=== PATIENT | female | born 1960 | race American Indian/Alaskan Native ===

== ENCOUNTER 2021-05-06 14:56 | Outpatient (CLI) | payer MEDICAID ==
--- NOTE | 2021-05-06 16:18 | XRay Report ---
LEFT KNEE 2 VIEWS INDICATION: PAIN IN LEFT. COMPARISON: None. IMPRESSION: Severe osteoarthritic changes are identified in the medial compartment with near complet e loss of joint space. Moderate degenerative changes are identified in the patellofemoral space. Mild degenerative changes in the lateral compartment. A 6 mm calcific density is identified in the supra patellar bursa consistent with a calcified intra-articular foreign body. No acute osseous abnormality or bone lesion is identified. Signer Name: Jonatahn Nguyen Jr, MD Signed: 05/06/2021 4:13 PM Workstation Name: [id number]
== END 2021-05-06 14:57 | disposition home or self-care (01) ==
LOC: XRAY 14:56
PROVIDERS: ATTEND Orthopaedic Surgery
DX: M17.12 Unilateral primary osteoarthritis, left knee (principal)

== ENCOUNTER 2021-06-05 08:42 | Inpatient (IN) | payer OTHER, MEDICAID ==
[2021-05-29 09:49] LABS: Hematocrit 37.9 % (30.3-42.9); Hemoglobin 12.1 gm/dl (10.1-14.3); Mean Corpuscular HGB Conc 32 % (30-34); Mean Corpuscular Volume 83 fl (79-97); Platelet Count 210 K/mm3 (140-440); Red Blood Count 4.58 M/mm3 (3.65-5.03); Red Cell Distribution Width 14.1 % (13.2-15.2)
[2021-05-29 10:29] LABS: BUN/Creatinine Ratio 20; Blood Urea Nitrogen 20 mg/dL (7-17); Calcium 9.3 mg/dL (8.4-10.2); Hemolysis Index 1
--- NOTE | 2021-05-29 10:59 | Anesthesia Consultation ---
Anesthesia Consult and Med Hx Date of service: 06/05/21 - Airway Anesthetic Teeth Evaluation: Good ROM Head & Neck: Adequate Mental/Hyoid Distance: Adequate Mallampati Class: Class I Intubation Access Assessment: Good - Pulmonary Exam CTA: Yes - Cardiac Exam Cardiac Exam: RRR - Pre-Operative Health Status ASA Pre-Surgery Classification: ASA3 Proposed Anesthetic Plan: General - Pre-Anesthesia Comment Pre-Anesthesia Comments: Discussed GA vs SAB; patient requests GA - Pulmonary Hx Smoking: No Hx Asthma: Yes (rare inhaler use; last use 1 yr ago) Hx Respiratory Symptoms: No Hx Sleep Apnea: No (EVERARDO PRE SCREEN HIGH RISK) - Cardiovascular System Hx Hypertension: Yes Hx Heart Attack/AMI: No Hx Percutaneous Transluminal Coronary Angioplasty (PTCA): No Hx Cardia Arrhythmia: No - Central Nervous System CVA: No Hx Psychiatric Problems: Yes (bipolar disorder) - Endocrine Hx Renal Disease: No Hx Liver Disease: No Hx Non-Insulin Dependent Diabetes: Yes Hx Thyroid Disease: No - Hematic Hx Anemia: No - Other Systems Hx Substance Use: Yes (THC gummies qHS) Hx Obesity: Yes (BMI 40) - Additional Comments Anesthesia Medical History Comments: No hx anesthetic complications.
[~2021-06-05 08:42] MED LIST: ACETAMINOPHEN 500 MG TAB PO SCH; CELECOXIB 200 MG CAP PO NR; GABAPENTIN 300 MG CAP PO NR; MIDAZOLAM 2 MG/2 ML INJ IV NR; ceFAZolin/Water 2 GM/20 ML 2 GM/20 ML SYRINGE IV NR; fentaNYL 100 MCG/2 ML INJ IV PRN
[2021-06-05] MEDS: LACTATED RINGERS 1,000 ML IV SCH ×2 (09:00→22:55)
[2021-06-05] MEDS ORDERED: BUPIVACAINE/PF (0.25%) 2.5 MG/ML 30 ML VIAL INFILTRATI ONE (09:54)
[2021-06-05] MEDS ORDERED: dexAMETHasone 4 MG/ML VIAL ONE (09:54)
[2021-06-05] MEDS ORDERED: fentaNYL 100 MCG/2 ML INJ ONE (10:52)
[2021-06-05] MEDS ORDERED: ONDANSETRON 4 MG/2 ML INJ ONE (10:52)
[2021-06-05] MEDS ORDERED: LIDOCAINE PF 100 MG/5 ML (CARDIAC SYRINGE) IV ONE (10:52)
[2021-06-05] MEDS ORDERED: propofoL 200 MG/20 ML VIAL IV ONE (10:53)
[2021-06-05] MEDS ORDERED: dexAMETHasone 20 MG/5 ML VIAL ONE (10:54)
--- OUTSIDE RECORDS SUMMARY | 2021-06-05 12:09 | External Medical Summary ---
:1960 Author Organization [facility], [facility] Address [address] [place] [address] Care Team Providers Name Role Phone David Unavailable [phone] PROBLEMS Type Condition ICD9-CM [id number] Onset Condition W/U Status Risk SNOM ED Notes Code Code Dates Status Code Problem Unilateral M17.12 Active confirmed 305505182 primary osteoarthrit is, left knee Problem Morbid E66.01 Active confirmed 860144271 (severe) obesity due to excess calories Problem Pain in left M25.562 Active confirmed 398061 003 knee ALLERGIES No Known Allergies ENCOUNTERS from 1960 to 2021-06-04 Encounter Location Date Provider Diagnosis [facility] [address] [facility] [address], [place] [address] IMMUNIZATIONS No Information SOCIAL HISTORY Sex Assigned At : Social History Observation Description Sex Assigned At Unknown REASON FOR REFERRAL from 1960 to 2021-06-04 Reason LT TKR Diagnosis 1 Morbid (severe) obesity due to excess calories (E66.01) Diagnosis 2 Unilateral primary osteoarth ritis, left knee (M17.12) Diagnosis 3 Pain in left knee (M25.562) Referral Organization [facility] Referring Provider First Name Robel Referring Provider Last Name David Referring Provider Specialty Orthopedic Surgery Referred Provider [facility], - Referral Priority Routine VITAL SIGNS No information MEDICATIONS Medication SIG (Take, Route, Notes Start Date End Date Status Frequency, Duration) Walker - as directed May, Active Metformin 1 tab Oral for 14 Active days Atorvastatin-Coenz Ms Jimenez only have Active yme Q10 us the name Atorvastine Didn't know the mg or daily amounts. lipitor 1 tab Oral for 14 Atorvastatin Did not Active days specifiy mg or times of day Meloxicam 7.5 MG 1 tablet Orally Ms Jimenez didn't Active Once a day for 30 know the mg or times day(s) of day Acetaminophen-Code 1 tablet as needed Apr, Active ine #3 300-30 MG Orally every 6 hrs PRN for pain PROCEDURES No Information RESULTS No Results REASON FOR VISIT walker order MEDICAL (GENERAL) HISTORY Type Description Date Medical History Widening of the aorta Medical History High [place] Medical History High Blood Pressure Medical History Diabetic since 2010 Surgical History Knee Surgery 2018 @ [facility] 2018 Hospitalization History No Hospitalization history informati on Goals Section No Information Health Concerns No Information MEDICAL EQUIPMENT No Information MENTAL STATUS No Information FUNCTIONAL STATUS No Information ASSESSMENTS No Information PLAN OF TREATMENT Medication Medication Name Sig Start Date Stop Date Acetaminophen-Codeine #3 300-30 1 tablet as needed Orally Apr MG every 6 hrs PRN for pain Walker - as directed May, Referrals Referral Date Details LT TKR Next Appt Details Provider Name:Robel Hernandez, 2021-06-05 01:30:00 PM, [address] [place], [address], Insurance Providers Payer Name Payer Payer Insured Patient Coverage Coverage Subscriber Group Address Phone Name Relationship Start End Date Number Nu mber to Insured Date Medicaid [phone] REAL,T self [id number] [id number] EMELY [address] [facility] [place] [id number] [phone] REAL,T self [id number] [phone] EMELY [address] [facility] [place] [id number]
[2021-06-05] MEDS ORDERED: KETOROLAC 30 MG/1 ML INJ ONE (14:36)
[2021-06-05] MEDS ORDERED: TRANEXAMIC ACID 1,000 MG/10 ML ONE (14:36)
[2021-06-05] MEDS ORDERED: MORPHINE 10 MG/1 ML INJ ONE (14:37)
[2021-06-05] MEDS ORDERED: BUPIVACAINE-EPINEPHRINE/PF 0.25%-1:200,000 (10 ML) VIAL INFILTRATI ONE (14:37)
[2021-06-05] MEDS ORDERED: SODIUM CHLORIDE 0.9% 100 ML ONE (14:37)
[2021-06-05] MEDS ORDERED: SODIUM CHLORIDE 0.9% 50 ML ONE ×2 (14:37)
[2021-06-05] MEDS ORDERED: BUPIVACAINE/PF (0.25%) 2.5 MG/ML 10 ML VIAL INFILTRATI ONE (14:56)
[2021-06-05] MEDS ORDERED: LACTATED RINGERS 1,000 ML ONE (15:23)
[2021-06-05] MEDS ORDERED: MAGNESIUM HYDROXIDE (MOM) ORAL LIQD UDC PO PRN (16:06)
[2021-06-05] MEDS ORDERED: HYDROmorphone 1 MG/1 ML INJ IV PRN ×3 (16:06→16:43)
[2021-06-05] MEDS ORDERED: IBUPROFEN 600 MG TAB PO PRN (16:06)
[2021-06-05] MEDS ORDERED: ONDANSETRON 4 MG/2 ML INJ IV PRN ×2 (16:06→16:43)
--- NOTE | 2021-06-05 16:18 | Procedure Note ---
Date of procedure: 06/05/21 Pre-op diagnosis: Severe arthritis left knee Post-op diagnosis: same Procedure: Left total knee replacement Procedure The patient was brought to the OR after being given a obturator nerve block and preoperative holding she was placed on the OR table supine position following induction elevation of anesthesia the patient left lower extremity was prepped and draped in the usual sterile manner. A timeout procedure was done to identify the patient in the correct operative site. The leg was exsanguinated followed by inflation of the pneumatic tourniquet to 300 mmHg. A midline incision was made over the patella was taken down distally towards the tibial tubercle next the medial retinaculum was incised and the patella was inverted examination of the patient's knee joint revealed typical osteoarthritic changes with large bone spurs noted primarily in the medial compartment both the femoral and tibial's articular surfaces exhibited bare bone and large peripheral osteophytes next a large drill bit was used to enter the medullary canal this was followed by placement of the distal femoral cutting Jig the distal femur was resected approximately 8-9 mm of bone was removed at this time. Attention was turned to the patient's proximal tibia using a external alignme guide the bone was cut using the medial surface as the low point of care was taken to protect the medial collateral ligaments the tibial articular surface was then sized and a #3 tibial based ray was selected this was followed by placement of the fixation hole or keel into the proximal tibial artery medullary canal. Attention was turned to the distal femur and using a 4 and 1 cutting block a #3 component was selected AP anterior and posterior as well as Shamffer cuts were made a #3 tibial ostomy femoral component was placed and the knee was then taken to a range of motion she appeared to have stability in both the flexion and extension FOLLOWING this the trial components were removed the knee was then copiously irrigated any remaining soft tissue and bony debris were removed at this time next the cement was next and following this the tibial components were inserted beginning with the based ray followed by the polyethylene insert {14mm} The femoral component was added the excess were removed the knee was held in extension until the cement hardened following hardening of cement the knee was then brought back into of flexion any remaining soft tissue and bony debris were removed at this time. The wound again was irrigated and was closed in a standard routine fashion. Dressings were applied the patient tolerated the procedure there were no complications she was then taken to post anesthesia recovery Anesthesia: MAC, regional Surgeon: DANIEL ROBERTS (Joel Gonzalez, 1st assist) Estimated blood loss: other (300 cc) Pathology: list (Portions of the distal femur and proximal tibia sent to pathology) Specimen disposition: to lab Condition: stable Disposition: PACU
[2021-06-05] MEDS ORDERED: KETOROLAC 30 MG/1 ML INJ IV ONE (16:31)
[2021-06-05] MEDS ORDERED: MORPHINE 10 MG/1 ML INJ IM ONE (16:31)
[2021-06-05] MEDS ORDERED: BUPIVACAINE/PF (0.5%) 5 MG/1 ML 30 ML VIAL INFILTRATI ONE (16:32)
[2021-06-05] MEDS ORDERED: SODIUM CHLORIDE 0.9% 50 ML VIAL INFILTRATI ONE (16:32)
[2021-06-05] MEDS ORDERED: SODIUM CHLORIDE 0.9% IRRIG SOLN 2000 ML IR ONE (16:33)
[2021-06-05] MEDS ORDERED: HYDROmorphone 1 MG/1 ML INJ ONE (16:40)
[2021-06-05] MEDS: HYDROmorphone 1 MG/1 ML INJ IV PRN ×2 (16:42→16:52)
--- NOTE | 2021-06-05 17:06 | XRay Report ---
Left knee 2 views INDICATION: Postop FINDINGS: Left total knee arthroplasty is satisfactory in position. No acute fracture is seen. Alignm ent appears normal Signer Name: Azar Goodson MD Signed: 06/05/2021 5:02 PM Workstation Name: [id number]
--- NOTE | 2021-06-05 17:40 | Post Anesthesia Evaluation ---
- Post Anesthesia Evaluation Patient Participated: Yes Airway Patent: Yes Stable Respiratory Function: Yes Nausea/Vomiting: No Temp > 96.8F: Yes Pain Manageable: Yes Adequeate Hydration: Yes Anesthesia Complications: No Block Receding Appropriately: Yes Patient on Ventilator: No
--- NOTE | 2021-06-05 17:40 | Anesthesia Day of Surgery ---
Anesthesia Day of Surgery - Day of Surgery Patient Examined: Yes Patient H&P Reviewed: Yes Patient is NPO: Yes
[2021-06-06] MEDS: KETOROLAC 30 MG/1 ML INJ IV PRN ×2 (09:16→17:12)
[2021-06-06] MEDS: ENOXAPARIN 40 MG/0.4 ML INJ SUB-Q SCH (09:16)
[2021-06-06 10:42] LABS: Hematocrit 29.3 % (30.3-42.9); Hemoglobin 9.6 gm/dl (10.1-14.3)
--- NOTE | 2021-06-06 12:27 | Progress Note ---
Assessment and Plan continue PT and observation hopefully dc to home soon... Subjective Date of service: 06/06/21 Interval history: doing well, started PT this am... Objective Vital signs: Vital Signs - 12hr 06/06/21 06/06/21 06/06/21 04:45 06:51 07:15 Temperature 97.6 F Pulse Rate 77 Respiratory 20 Rate Blood Pressure 120/81 O2 Sat by Pulse 96 98 96 Oximetry 06/06/21 08:00 Temperature Pulse Rate Respiratory Rate Blood Pressure O2 Sat by Pulse 95 Oximetry Incision: clean and dry Weight bearing status: as tolerated - Labs CBC & BMP: 06/06/21 10:40 05/29/21 09:20 Labs: Abnormal lab results 06/05/21 06/06/21 Range/Units 16:42 10:40 Hgb 9.6 L (10.1-14.3) gm/dl Hct 29.3 L (30.3-42.9) % POC Glucose 175 H (70-105) mg/dL
[2021-06-07] MEDS: KETOROLAC 30 MG/1 ML INJ IV PRN ×2 (02:32→12:18)
[2021-06-07] MEDS: ENOXAPARIN 40 MG/0.4 ML INJ SUB-Q SCH (09:24)
--- NOTE | 2021-06-07 12:34 | Discharge Summary ---
Providers - Providers Date of Admission: 06/05/21 08:42 Date of discharge: 06/07/21 Attending physician: DANIEL ROBERTS MD 06/05/21 16:06 Consult to Case Management [CONS] Routine Services Needed at Discharge: Other Notified:: yes Additional Physician Instructions: Assess Discharge needs. Physical Therapy Evaluation and Treat [CONS] Routine Comment: post op evaluation Reason For Exam: Eval and Treat Weight bearing status?: Full wt bearing Assistive devices?: Yes If so list: Walker Primary care physician: CALLY REARDON Hospitalization Disposition: 30 STILL A PATIENT Exam - Constitutional Vitals: Temp Pulse Resp BP Pulse Ox 98.2 F 95 H 18 124/80 99 06/07/21 04:48 06/07/21 04:48 06/07/21 04:48 06/07/21 04:48 06/07/21 07:00 Plan Follow up with: CALLY REARDON III, [employer] [Primary Care Provider] - 7 Days Prescriptions: Apixaban [Eliquis] 5 mg PO DAILY #30 Oxycodone HCl/Acetaminophen [Percocet 10/325 mg] 1 each PO Q6HR PRN #30 PRN Reason: Pain
[2021-06-07 17:59] VITALS: BP 154/84
== END 2021-06-07 18:30 | disposition home or self-care (01) | DRG 470 ==
LOC: 3A 08:42
PROVIDERS: ADMIT Orthopaedic Surgery; ATTEND Orthopaedic Surgery
PROC: 0SRD0J9 Replacement of Left Knee Joint with Synthetic Substitute, Cemented, Open Approach (ICD-10-PCS; principal; 2021-06-05)
DX: M17.12 Unilateral primary osteoarthritis, left knee (principal); E11.9 Type 2 diabetes mellitus without complications; Z20.822 Contact with and (suspected) exposure to COVID-19; E66.01 Morbid (severe) obesity due to excess calories; Z68.41 Body mass index [BMI] 40.0-44.9, adult
CPT/HCPCS: 36415; 64450; 80048; 82962; 85014; 85018; 85027; 88309; 88311; G0378; J3490; J7120; C1713; C1776; J1100; J1170; J1650; J1885; J2001; J2250; J2270; J2405; J2704; J3010; U0003